=== PATIENT | female | born 1955 | race Caucasian/White ===

== ENCOUNTER 2020-01-17 10:54 | Emergency (ER) | payer BC ==
--- NOTE | 2020-01-17 11:49 | ED Physician Documentation ---
History of Present Illness - Stated complaint Stated Complaint: VERTIGO/NUMBNESS - Chief complaint Chief Complaint: General - History obtained from History obtained from: Patient, Family - History of Present Illness Timing: Prior to arrival - Additonal information Additional information: 64-year-old female presents to the emergency department for evaluation of r ecurrent vertigo. She reports that at 6 AM this morning when she was getting ready to shower she began to have a sudden spinning sensation. Since this morning the spinning sensation has not stopped and she now has some associated numbness and tingling in her right palm. She reports that for a number of years that she has had intermittent vertigo symptoms. However over the last 2 to 3 weeks it has become more persistent and acutely worse now for 48 hours. She was seen at physical therapy last week and they did attempt the Anny maneuver without relief of symptoms. With this episode of dizziness she reports that her vision is" wonky" but she does not have double vision or loss of visual richard. She has been persistently nauseated and is vomiting at the bedside. Deneis CP, SOB, abdominal pain, dysuia, urgency or frequency She does report a history of a benign meningioma that was resected in 2007 at the [facility]. pmh: no hx of htn, DM SOC: no tobacco; infrequent ETOH Review of Systems Constitutional: denies: Fever, Chills Eyes: reports: Decreased vision, Other (visual disturbance). denies: Loss of vision, Photophobia Ears: reports: Tinnitus/ringing. denies: Loss of hearing, Ear pain Nose: reports: Reviewed and negative Throat: reports: Reviewed and negative Cardiac: denies: Chest pain / pressure, Palpitations, Pedal edema, Calf pain Respiratory: denies: Dyspnea, Cough GI: reports: Nausea, Vomiting. denies: Abdominal Pain, Abdominal Swelling, Constipation, Diarrhea : denies: Frequency, Hesitancy Skin: denies: Rash, Lesions Musculoskeletal: denies: Neck pain, Back pain, Extremity pain Neurologic: reports: Other (vertigo). denies: Generalized weakness, Focal weakness, Numbness, Near syncope, Syncope, Seizure, Altered mental status, Unresponsive, Headache, LOC PD PAST MEDICAL HISTORY - Past Medical History Past Medical History: Yes Cardiovascular: None Respiratory: None Neuro: Other Endocrine/Autoimmune: None GI: None MEDICAL OFFICE TECHNICIAN: None : None HEENT: Chronic vision loss, Dental implants Psych: None Musculoskeletal: None Derm: None - Past Surgical History Past Surgical History: Yes Neuro: Craniotomy - Allergies Allergies/Adverse Reactions: Allergies Allergy/AdvReac Type Severity Reaction Status Date / Time No Known Drug Allergies Allergy Verified 01/17/20 11:11 - Social History Does the pt smoke?: No Smoking Status: Never smoker Does the pt drink ETOH?: No Does the pt have substance abuse?: No - Immunizations Immunizations are current?: Yes - POLST Patient has POLST: No PD ED PE EXPANDED - General General: Alert, In distress - HEENT HEENT: PERRL, EOMI, Ears normal, Pharynx normal, Other (Right eye with lateral deviation that corrects with fixed focus. EOMI otherwise intact. PERRLA) - Eyes Eyes: Normal accommodation, Right eye (Right eye with initial gaze deviation laterally that corrects with fixation. PERRL. Extraocular movements are intact. Normal accommodation.) - Neck Neck: Supple w/out meningeal sx, No tenderness. No: Stiff neck, Brudzinki's, Kernig's, JVD present, Adenopathy - Cardiac Cardiac: Regular Rate, Regular Rhythm, Radial strong equal, Cap refill < 2 sec - Respiratory Respiratory: Clear to ausultation morris. No: Distress, Labored - Abdomen Abdomen: Normal Bowel sounds. No: Tender to palpation - Derm Derm: Normal color. No: Rash - Neuro Neuro: Alert and Oriented X 3, Normal motor (motor strength 5/5 BUE/BLE), Normal Speech, Dyscongugate gaze, Nystagmus, Normal finger nose, Normal speech, Other (numbness and tingling right palm). No: CNII-XII intact - GCS Eye Opening: Spontaneous Motor: Obeys Commands Verbal: Oriented Total: 15 Results - Vitals Vitals: Vital Signs - 24 hr 01/17/20 01/17/20 01/17/20 10:58 13:24 13:41 Temperature 36.8 C Heart Rate 70 63 Heart Rate [ 75 Sitting] Heart Rate [ 76 Standing] Heart Rate [ 69 Supine] Respiratory 15 16 Rate Blood Pressure 140/92 H 141/86 H Blood Pressure 144/81 H [Sitting] Blood Pressure 135/83 H [Standing] Blood Pressure 140/73 H [Supine] O2 Saturation 99 97 Oxygen O2 Source Room air - EKG (time done) 1157 Rate: Rate (enter#) (62) Rhythm: NSR Atwood: Normal Intervals: Normal OH QRS: Normal Ischemia: Normal ST segments Compare to prior EKG: Old EKG unavailable Computer interpretation: Agree with computer - Labs Labs: Laboratory Tests 01/17/20 01/17/20 01/17/20 11:54 11:54 11:54 WBC 7.9 RBC 5.01 Hgb 14.9 Hct 44.4 MCV 88.6 MCH 29.7 MCHC 33.6 RDW 13.2 Plt Count 387 MPV 8.7 Neut # (Auto) 6.2 Lymph # (Auto) 1.3 L Ransom # (Auto) 0.3 Eos # (Auto) 0.0 Baso # (Auto) 0.1 Absolute Nucleated RBC 0.00 Nucleated RBC % 0.0 Sodium 137 Potassium 3.7 Chloride 103 Carbon Dioxide 24 Anion Gap 10.0 BUN 16 Creatinine 0.7 Estimated GFR (MDRD) 85 L Glucose 164 H Calcium 9.1 Total Bilirubin 0.7 AST 21 ALT 28 Alkaline Phosphatase 81 Troponin I High Sens < 2.3 L Total Protein 7.1 Albumin 4.2 Globulin 2.9 Albumin/Globulin Ratio 1.4 Lipase 32 Nasal Adenovirus (PCR) Nasal B. parapertussis DNA (PCR) Nasal Coronavir 229E PCR Nasal Coronavir HKU1 PCR Nasal Coronavir NL63 PCR Nasal Coronavir OC43 PCR Nasal Enterovir/Rhinovir PCR Nasal Influenza B PCR Nasal Influenza A PCR Nasal Parainfluen 1 PCR Nasal Parainfluen 2 PCR Nasal Parainfluen 3 PCR Nasal Parainfluen 4 PCR Nasal RSV (PCR) Nasal B.pertussis DNA PCR Nasal C.pneumoniae (PCR) Ignacio Human Metapneumo PCR Nasal M.pneumoniae (PCR) Nasal SARS-CoV-2 (PCR) 01/17/20 14:52 WBC RBC Hgb Hct MCV MCH MCHC RDW Plt Count MPV Neut # (Auto) Lymph # (Auto) Ransom # (Auto) Eos # (Auto) Baso # (Auto) Absolute Nucleated RBC Nucleated RBC % Sodium Potassium Chloride Carbon Dioxide Anion Gap BUN Creatinine Estimated GFR (MDRD) Glucose Calcium Total Bilirubin AST ALT Alkaline Phosphatase Troponin I High Sens Total Protein Albumin Globulin Albumin/Globulin Ratio Lipase Nasal Adenovirus (PCR) NOT DETECTED Nasal B. parapertussis DNA (PCR) NOT DETECTED Nasal Coronavir 229E PCR NOT DETECTED Nasal Coronavir HKU1 PCR NOT DETECTED Nasal Coronavir NL63 PCR NOT DETECTED Nasal Coronavir OC43 PCR NOT DETECTED Nasal Enterovir/Rhinovir PCR NOT DETECTED Nasal Influenza B PCR NOT DETECTED Nasal Influenza A PCR NOT DETECTED Nasal Parainfluen 1 PCR NOT DETECTED Nasal Parainfluen 2 PCR NOT DETECTED Nasal Parainfluen 3 PCR NOT DETECTED Nasal Parainfluen 4 PCR NOT DETECTED Nasal RSV (PCR) NOT DETECTED Nasal B.pertussis DNA PCR NOT DETECTED Nasal C.pneumoniae (PCR) NOT DETECTED Ignacio Human Metapneumo PCR NOT DETECTED Nasal M.pneumoniae (PCR) NOT DETECTED Nasal SARS-CoV-2 (PCR) NOT DETECTED PD MEDICAL DECISION MAKING - ED course ED course: 62-year-old female presents to the emergency department for evaluation of acute on chronic worsening vertigo. She does have a longstanding history of vertigo and has been seen recently by physical therapy in which they have attempted outpatient Nany maneuvers with no relief. This a.m. as she was getting ready to shower she had sudden onset of worsening vertigo with accompanied vomiting. She did initially see her primary care provider who advised she come to the ER for emergent evaluation. On initial presentation I did note that her right eye was deviated laterally but would correct. She also endorsed vision changes though not necessarily double vision. She denies any history of tobaccoism hypertension or diabetes. However the exam is concerning for posterior circulation concerns. We will proceed with CT angio of the head and neck. 1400: CT angio of the head and neck does show both bilateral vertebral and basilar artery lack of opacification which may indicate poor flow or occlusion. There is a left M1 4 mm associated aneurysm as well. 1430: I have spoken with Dr. Greenberg neurologist with [facility] hospitalist. He does recommend patient be emergently transferred for posterior circulation brainstem concerns/ischemia. 325 mg of aspirin ordered. 1445: I have spoken with [facility] Hospitalist Dr. Frandy Donovan accepting hospitalist at [facility]. Pt will be transported ALS. 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
--- NOTE | 2020-01-17 11:58 | XRAY Report ---
PROCEDURE: Chest 1 View X-Ray INDICATIONS: Chest Pain TECHNIQUE: One view of the chest was acquired. COMPARISON: None FINDINGS: Surgical changes and devices: Partially visualized lumbar spine fixation hardware.. Lungs and pleura: No pleural effusions or pneumothorax. Lungs are clear. Mediastinum: Mediastinal contours appear normal. Heart size is normal. Bones and chest wall: No suspicious bony lesions. Overlying soft tissues appear unremarkable. IMPRESSION: No acute cardiopulmonary disease process. Reviewed by: Samaria Barros MD, PhD on 01/17/2020 11:56 AM [facility] Approved by: Samaria Barros MD, PhD on 01/17/2020 11:56 AM [facility] Station ID: [id number]
[2020-01-17 12:04] LABS: BASOPHILS # (AUTO) 0.1 10^3/uL (0.0-0.1); BASOPHILS % (AUTO) 0.8 %; EOSINOPHILS % (AUTO) 0.3 %; HGB - HEMOGLOBIN 14.9 g/dL (12.0-16.0); LYMPHOCYTES # (AUTO) 1.3 10^3/uL (1.5-3.5); LYMPHOCYTES % (AUTO) 16.6 %; MEAN CORPUSCULAR HEMOGLOBIN 29.7 pg (27.0-31.0); MEAN CORPUSCULAR HGB CONC 33.6 g/dL (32.0-36.0); MEAN CORPUSCULAR VOLUME 88.6 fL (81.0-99.0); MEAN PLATELET VOLUME 8.7 fL (7.9-10.8); MONOCYTES # (AUTO) 0.3 10^3/uL (0.0-1.0); MONOCYTES % (AUTO) 3.3 %; NEUTROPHILS # (AUTO) 6.2 10^3/uL (1.5-6.6); NEUTROPHILS % (AUTO) 78.6 %; PLT - PLATELET COUNT 387 10^3/uL (130-450); RED BLOOD COUNT 5.01 10^6/uL (4.20-5.40); RED CELL DISTRIBUTION WIDTH 13.2 % (12.0-15.0); WHITE BLOOD COUNT 7.9 x10^3/uL (4.8-10.8)
[2020-01-17] MEDS ORDERED: IOVERSOL 320 100 ML VIAL IVP ONE (12:10)
[2020-01-17] MEDS: MECLIZINE 12.5 MG TABLET PO STA (12:13)
[2020-01-17] MEDS: SODIUM CHLORIDE 0.9% 1,000 ML IV STA (12:16)
[2020-01-17] MEDS: ONDANSETRON 4 MG/2 ML VIAL IVP STA (12:17)
[2020-01-17 12:19] LABS: ALBUMIN 4.2 g/dL (3.2-5.5); ALBUMIN/GLOBULIN RATIO 1.4 (1.0-2.2); BILIRUBIN,TOTAL 0.7 mg/dL (0.2-1.0); CALCIUM 9.1 mg/dL (8.5-10.3); CREATININE 0.7 mg/dL (0.4-1.0); TOTAL PROTEIN 7.1 g/dL (6.7-8.2)
[2020-01-17] MEDS: IOVERSOL 320 100 ML VIAL IVP ONE (13:13)
--- NOTE | 2020-01-17 13:34 | CT Report ---
PROCEDURE: ANGIO HEAD W/WO INDICATIONS: vertigo CONTRAST: IV CONTRAST: Optiray 320 ml: 80 PO CONTRAST: *NO PO CONTRAST TECHNIQUE: Precontrast 4.5 mm thick angled axial sections acquired from the foramen magnum to the vertex. Afte r the administration of intravenous contrast, 1 mm thick sections acquired through the [place] of [place] is. Postcontrast 4.5 mm thick sections then re-acquired from the foramen magnum to the vertex. 3-di mensional zloogkm-ghuxojrvn-qnozebygos (MIP) and/or volume rendering reformats were acquired of the c entral intracranial vasculature. For radiation dose reduction, the following was used: automated ex posure control, adjustment of mA and/or kV according to patient size. COMPARISON: CTA neck 01/17/2020. FINDINGS: Image quality: Excellent. Anterior circulation: The anterior circulation, including the anterior and right middle cerebral art eries, as well as bilateral internal carotid arteries demonstrates no areas of hemodynamically signif icant stenosis, vascular occlusion or aneurysmal dilation. There is a 4 mm aneurysm within the left M 1 segment. Posterior circulation: There is bilateral persistence of circulation, consistent with congenti al variation. Distal portions of the vertebral arteries bilaterally are diminutive with areas of abse nce of contrast opacification. In addition, the basilar artery is diminutive with nonopacification of the proximal portion. No priors are available for comparison. No aneurysms are seen. CSF spaces: Ventricles are normal in size and shape. Basal cisterns are patent. No extra-axial flu id collections. Brain: No midline shift. No intracranial bleeds or masses. Chowdhury-white matter interface appears int act. Low attenuation focus is present in the right frontal lobe. Smaller focus is noted posteriorly in the right frontal lobe. Skull and face: Calvarium demonstrates right frontal post surgical changes. The facial bones appear intact, without suspicious lesions. Sinuses: Visualized sinuses and mastoids are clear. IMPRESSION: 1. Low-attenuation foci within the frontal lobes as above. Given postsurgical calvarial changes, this may be secondary to previous hemorrhage or trauma. 2. Diminutive appearance of distal vertebral arteries bilaterally, including portions of nonopacifica tion. In addition, the proximal basilar artery also demonstrates lack of opacification with mid and d istal portions appearing diminutive. It is noted that there is persistence of bilateral circula tion to the posterior vasculature. MRI is recommended for further evaluation of any associated ischem ia. 3. Left M1 segment aneurysm as above. No visualized hemorrhage. Reviewed by: Jhoana Whiteside MD on 01/17/2020 12:32 PM [facility] Approved by: Jhoana Whiteside MD on 01/17/2020 12:32 PM [facility] Station ID: [id number]
--- NOTE | 2020-01-17 13:39 | CT Report ---
PROCEDURE: ANGIO NECK W INDICATIONS: L sided facial droop, L neck pain CONTRAST: IV CONTRAST: Optiray 320 ml: 100 PO CONTRAST: *NO PO CONTRAST TECHNIQUE: After the administration of intravenous contrast, 1.5 mm axial sections acquired from the aortic arch to the [place] of [place]. Coronal 3-D maximum intensity projection (MIP) and/or volume rendering ref ormats were then performed. For radiation dose reduction, the following was used: automated exposur e control, adjustment of mA and/or kV according to patient size. COMPARISON: CTA head 01/17/2020 FINDINGS: Image quality: Excellent. The origins of the left and right common, internal and external carotid arteries demonstrate no areas of hemodynamically significant stenosis, vascular occlusion or aneurysmal dilation. Origin of the le ft vertebral artery and right vertebral artery demonstrate no areas of hemodynamically significant st enosis, vascular occlusion or aneurysmal dilation. The midportion of the left vertebral artery becomes markedly diminutive with poor visualization of co ntrast opacification. In addition, adjacent segment more cranially demonstrates loss of central contr ast enhancement. As noted on CTA head exam, there is a 4 mm left M1 segment aneurysm. In addition, di stal vertebral arteries become diminutive with areas of absence of contrast opacification. In additio n, proximal basilar artery also appears to be nonopacified with diminutive appearance of the mid and distal portions. There is persistent circulation bilaterally into the posterior circulation. Aortic arch demonstrates conventional anatomy. Limited, visualized portions of the subclavian vascula ture are unremarkable. . IMPRESSION: 1. 4 mm left M1 segment aneurysm. No evidence of hemorrhage. 2. Markedly diminutive distal vertebral arteries bilaterally with areas of no contrast opacification suggestive of short segment occlusions. In addition, optional basilar artery demonstrates loss of con trast enhancement with diminutive appearance of the mid and distal segments. There is persistence of circulation bilaterally. MRI is recommended for evalua tion of potential presence of acute ischemia. 3. Short segment areas of the left vertebral artery within the midportion which demonstrate loss of c ontrast enhancement suggestive of occlusion. In addition, adjacent segments of the vertebral artery d emonstrate loss of contrast enhancement within the central portion which can be secondary to thrombus or less likely contained dissection. The estimate of stenosis included in the report of the imaging study was calculated using the NASCET method Reviewed by: Jhoana Whiteside MD on 01/17/2020 12:38 PM [facility] Approved by: Jhoana Whiteside MD on 01/17/2020 12:38 PM [facility] Station ID: [id number]
[2020-01-17] MEDS: PROCHLORPERAZINE 10 MG/2 ML VIAL IVP STA (14:24)
[2020-01-17] MEDS: ASPIRIN CHEW 81 MG TABLET PO STA (14:38)
[2020-01-17 15:48] LABS: C. PNEUMONIAE- RESP PCR PANEL NOT DETECTED
[2020-01-17 18:36] VITALS: BP 124/77
== END 2020-01-17 19:59 | disposition short-term general hospital (02) ==
LOC: ED 10:54
DX: I65.03 Occlusion and stenosis of bilateral vertebral arteries (principal); Z20.828 Contact with and (suspected) exposure to other viral communicable diseases
CPT/HCPCS: 0202U; 36415; 70496; 70498; 71045; 80053; 83690; 84484; 85025; 93005; 96374; 96375; 99285; A9270; Q9967

== ENCOUNTER 2020-01-17 19:20 | Outpatient (CLI) | payer BC | END 2020-01-17 19:21 | disposition short-term general hospital (02) | LOC: EMS 19:20 | PROVIDERS: ATTEND Surgery | DX: R42 Dizziness and giddiness (principal); R20.0 Anesthesia of skin; R11.0 Nausea | CPT/HCPCS: A0425; A0426 ==

== ENCOUNTER 2020-03-12 08:00 | Outpatient (CLI) | payer BC ==
[2020-03-12 18:41] LABS: BASOPHILS # (AUTO) 0.1 10^3/uL (0.0-0.1); BASOPHILS % (AUTO) 1.3 %; EOSINOPHILS # (AUTO) 0.2 10^3/uL (0.0-0.7); EOSINOPHILS % (AUTO) 3.8 %; HGB - HEMOGLOBIN 14.5 g/dL (12.0-16.0); LYMPHOCYTES # (AUTO) 1.7 10^3/uL (1.5-3.5); LYMPHOCYTES % (AUTO) 29.9 %; MEAN CORPUSCULAR HEMOGLOBIN 28.9 pg (27.0-31.0); MEAN CORPUSCULAR HGB CONC 31.1 g/dL (32.0-36.0); MEAN CORPUSCULAR VOLUME 92.8 fL (81.0-99.0); MEAN PLATELET VOLUME 9.7 fL (7.9-10.8); MONOCYTES # (AUTO) 0.4 10^3/uL (0.0-1.0); MONOCYTES % (AUTO) 7.5 %; NEUTROPHILS # (AUTO) 3.2 10^3/uL (1.5-6.6); NEUTROPHILS % (AUTO) 57.1 %; PLT - PLATELET COUNT 359 10^3/uL (130-450); RED BLOOD COUNT 5.02 10^6/uL (4.20-5.40); RED CELL DISTRIBUTION WIDTH 13.2 % (12.0-15.0); WHITE BLOOD COUNT 5.6 x10^3/uL (4.8-10.8)
[2020-03-12 18:55] LABS: ALBUMIN 4.4 g/dL (3.2-5.5); ALBUMIN/GLOBULIN RATIO 1.6 (1.0-2.2); ALKALINE PHOSPHATASE 80 IU/L (42-121); ALT ALANINE AMINOTRANSFERASE 50 IU/L (10-60); AST ASPARTATE AMINOTRANSFERASE 29 IU/L (10-42); BILIRUBIN,TOTAL 0.5 mg/dL (0.2-1.0); BUN - BLOOD UREA NITROGEN 25 mg/dL (6-20); CALCIUM 9.2 mg/dL (8.5-10.3); CARBON DIOXIDE - CO2 26 mmol/L (21-32); CHLORIDE 105 mmol/L (101-111); CHOL/HDL RATIO 2.7 (<4.4); CHOLESTEROL 150 mg/dL; CREATININE 0.8 mg/dL (0.4-1.0); GLUCOSE 93 mg/dL (70-100); HDL CHOLESTEROL 55 mg/dL; LDL CHOLESTEROL,CALCULATED 79 mg/dL; LDL/HDL RATIO 1.4 (<4.4); SODIUM 138 mmol/L (135-145); TOTAL PROTEIN 7.1 g/dL (6.7-8.2); VLDL CHOLESTEROL 16 mg/dL
[2020-03-12 20:06] LABS: HEMOGLOBIN A1c% 5.6 % (4.27-6.07)
== END 2020-03-12 23:59 | disposition home or self-care (01) ==
LOC: LAB.WCP 08:00
PROVIDERS: ATTEND Family Medicine
DX: R73.03 Prediabetes (principal); E78.5 Hyperlipidemia, unspecified
CPT/HCPCS: 36415; 80053; 80061; 83036; 83721; 84443; 85025

== ENCOUNTER 2020-03-15 09:32 | Outpatient (CLI) | payer BC ==
--- NOTE | 2020-03-26 11:19 | Mammography Report ---
BILATERAL DIGITAL SCREENING MAMMOGRAM 3D/2D: 03/15/2020 CLINICAL: Family history of breast cancer. Routine screening. Additional films were requested but not obtained. The tissue of both breasts is heterogeneously dens e. This may lower the sensitivity of mammography. There is a possible 1.5 cm mass in the right breast at 5 o'clock in the retroareolar region. No other significant masses, calcifications, or other findings are seen in either breast. IMPRESSION: INCOMPLETE: NEED PRIOR STUDIES FOR COMPARISON The possible 1.5 cm mass in the right breast is indeterminate. Additional views with possible ultras ound are recommended. This exam was interpreted at Station ID: [id number]. NOTE: For mammograms, a report in lay terms will be sent to the patient. Approximately 15% of breast malignancies will not be visualized mammographically. In the management of a palpable breast mass, a negative mammogram must not discourage biopsy of a clinically suspicious lesion. Electronically Signed By: Maximiliano tanner/sebas:03/26/2020 10:38:05 ACR BI-RADS Category 0 Need prior studies for comparison 3340F PARENCHYMAL PATTERN: (D) - The breast(s) demonstrate(s) heterogeneously dense fibroglandular parveroniquey ma. BI-RADS CATEGORY: (0) - 0 Mammo and [place] [id number] Immediate follow-up LATERALITY: (R)
== END 2020-03-15 09:33 | disposition home or self-care (01) ==
LOC: DI.N 09:32
DX: Z12.31 Encounter for screening mammogram for malignant neoplasm of breast (principal); N63.14 Unspecified lump in the right breast, lower inner quadrant; Z80.3 Family history of malignant neoplasm of breast

== ENCOUNTER 2020-03-20 10:39 | Outpatient (CLI) | payer BC ==
[2020-01-17 16:24] LABS: CHOL/HDL RATIO 4.8 (<4.4); CHOLESTEROL 276 mg/dL; HDL CHOLESTEROL 58 mg/dL; LDL CHOLESTEROL,CALCULATED 198 mg/dL; LDL/HDL RATIO 3.4 (<4.4); VLDL CHOLESTEROL 20 mg/dL
--- NOTE | 2020-03-20 11:21 | DEXA Report ---
PROCEDURE: Dexa Spine and/or Hip INDICATIONS: POSTMENOPAUSAL TECHNIQUE: Dual energy x-ray absorptiometry (DXA) was performed on a [employer] System. Regions measur ed are the AP Spine, femoral neck, and if needed forearm. COMPARISON: None. FINDINGS: Lumbar Spine: Bone Mineral Density 1.395 g/cm/cm,T score 2.2, prior corpectomy and fusion of lumbar spine at L2- 3 level is seen. Left Hip: Bone Mineral Density 0.822 g/cm/cm,T score -1.5, Left Femoral Neck: Bone Mineral Density 0.770 g/cm/cm, T score -1.9, (T score greater or equal to -1.0: NORMAL) (T score from -1.1 to -2.4: OSTEOPENIA) (T score less than or equal to -2.5 to: OSTEOPOROSIS) Impression: Osteopenia. Patients with diagnosis of osteoporosis or osteopenia should have regular bone mineral density assess ment. For those eligible for Medicare, routine testing is allowed once every 2 years. Testing frequ ency can be increased for patients who have rapidly progressing disease or for those who are receivin g medical therapy to restore bone mass. Reviewed by: Mitch Ratliff MD on 03/20/2020 11:19 AM PST Approved by: Mitch Ratliff MD on 03/20/2020 11:19 AM PST Station ID: [id number]
== END 2020-03-20 10:40 | disposition home or self-care (01) ==
LOC: DI 10:39
PROVIDERS: ATTEND Family Medicine
DX: Z00.00 Encounter for general adult medical examination without abnormal findings (principal); Z78.0 Asymptomatic menopausal state; M85.89 Other specified disorders of bone density and structure, multiple sites; E78.5 Hyperlipidemia, unspecified
CPT/HCPCS: 36415; 80053; 80061; 83721; 84443; 85025

== ENCOUNTER 2020-03-20 11:00 | Outpatient (CLI) | payer BC ==
--- NOTE | 2020-03-20 11:21 | DEXA Report ---
REVISED: THIS REPORT WAS ORIGINALLY SIGNED ON 03/20/2020 @ 11:19 AM. THE REPORT MOVED TO THE CORRECT ACCOUNT ON 04/09/2020. PROCEDURE: Dexa Spine and/or Hip INDICATIONS: POSTMENOPAUSAL TECHNIQUE: Dual energy x-ray absorptiometry (DXA) was performed on a [employer] System. Regions measured are the AP Spine, femoral neck, and if needed forearm. COMPARISON: None. FINDINGS: Lumbar Spine: Bone Mineral Density 1.395 g/cm/cm,T score 2.2, prior corpectomy and fusion of lumbar spine at L2-3 level is seen. Left Hip: Bone Mineral Density 0.822 g/cm/cm,T score -1.5, Left Femoral Neck: Bone Mineral Density 0.770 g/cm/cm, T score -1.9, (T score greater or equal to -1.0: NORMAL) (T score from -1.1 to -2.4: OSTEOPENIA) (T score less than or equal to -2.5 to: OSTEOPOROSIS) Impression: Osteopenia. Patients with diagnosis of osteoporosis or osteopenia should have regular bone mineral density assessment. For those eligible for Medicare, routine testing is allowed once every 2 years. Testing frequency can be increased for patients who have rapidly progressing disease or for those who are receiving medical therapy to restore bone mass. Reviewed by: Mitch Ratliff MD on 03/20/2020 11:19 AM PST Approved by: Mitch Ratliff MD on 03/20/2020 11:19 AM PST Station ID: [id number]
== END 2020-03-20 15:00 ==
LOC: DI 11:00
PROVIDERS: ATTEND Family Medicine
DX: M85.89 Other specified disorders of bone density and structure, multiple sites (principal); Z78.0 Asymptomatic menopausal state

== ENCOUNTER 2020-04-17 10:31 | Outpatient (CLI) | payer BC ==
--- NOTE | 2020-04-17 13:38 | Mammography Report ---
UNILATERAL RIGHT DIGITAL DIAGNOSTIC MAMMOGRAM 3D/2D: 04/17/2020 CLINICAL: Additional evaluation requested from prior study. Patient returns for additional imaging ov er a suspected mass in the right breast. Comparison is made to exams dated: 03/15/2020 mammogram - [facility], 08/31/2018 mamm ogram, 07/29/2017 mammogram, 07/15/2016 mammogram, and 01/24/2015 mammogram - [facility]. The tissue of right breast is heterogeneously dense. This may lower the sensitivity of mammography. There is a new 2 cm x 1.2 cm oval mass in the right breast at 6 o'clock anterior depth 2 cm from the nipple. This is seen in additional views. No other significant masses or calcifications are seen in the breast. IMPRESSION: INCOMPLETE: NEEDS ADDITIONAL IMAGING EVALUATION The new 2 cm x 1.2 cm oval mass in the right breast is indeterminate. An ultrasound is recommended. US will be performed and dictated separately. Review of prior images demonstatres this to be stable since 2014. This exam was interpreted at Station ID: [id number]. NOTE: For mammograms, a report in lay terms will be sent to the patient. Approximately 15% of breast malignancies will not be visualized mammographically. In the management of a palpable breast mass, a negative mammogram must not discourage biopsy of a clinically suspicious lesion. Electronically Signed By: Victor Manuel Barkley acr/:04/17/2020 11:51:29 ACR BI-RADS Category 0: Incomplete 3340F PARENCHYMAL PATTERN: (D) - The breast(s) demonstrate(s) heterogeneously dense fibroglandular paraakash aponte. BI-RADS CATEGORY: (0) - 0 Ultrasound [id number] Immediate follow-up LATERALITY: (B)
--- NOTE | 2020-04-17 13:38 | Ultrasound Report ---
LIMITED ULTRASOUND OF RIGHT BREAST: 04/17/2020 CLINICAL: Patient returns for additional imaging over a suspected mass in the right breast. Comparison is made to exams dated: 04/17/2020 mammogram, 03/15/2020 mammogram - [facility], 08/31/2018 mammogram, 07/29/2017 mammogram, 07/15/2016 mammogram, and 01/24/2015 mammogram - [facility]. Color flow and real-time ultrasound of the right breast 4 o'clock region were performed. Chowdhury scale images of the real-time examination were reviewed. There is a stable benign 1.3 cm x 0.5 cm x 1.7 cm mass with a circumscribed margin in the right breas t at 4 o'clock posterior depth. This mass is hypoechoic. This correlates with mammography findings. Color flow imaging demonstrates that there is no increase in vascularity. IMPRESSION: BENIGN There is no sonographic evidence of malignancy. 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 Return to annual mammogram screening schedule is recommended. Future imaging is recommended as follo ws: 03/16/2021 screening mammogram. This exam was interpreted at Station ID: [id number]. Electronically Signed By: Victor Manuel Barkley acr/:04/17/2020 11:50:18 Ultrasound BI-RADS: 2 Benign BI-RADS CATEGORY: (2) - 2 Mammogram [id number] return to screening LATERALITY: (B)
== END 2020-04-17 10:32 | disposition home or self-care (01) ==
LOC: DI 10:31
PROVIDERS: ATTEND Family Medicine
DX: R92.8 Other abnormal and inconclusive findings on diagnostic imaging of breast (principal); N63.15 Unspecified lump in the right breast, overlapping quadrants

== ENCOUNTER 2021-01-01 11:59 | Outpatient (CLI) | payer BC ==
[2021-01-01] MEDS ORDERED: GADOBUTROL 7.5 MMOL/7.5 ML VIAL ONE (12:57)
[2021-01-01 13:02] LABS: CREATININE 0.7 mg/dL (0.4-1.0)
[2021-01-01] MEDS ORDERED: GADOBUTROL 7.5 MMOL/7.5 ML VIAL IVP ONE (16:21)
--- NOTE | 2021-01-01 17:12 | MRI Report ---
PROCEDURE: Brain W/WO INDICATIONS: LEFT VERTEBRAL ARTERY DISSECTION CONTRAST: IV CONTRAST: Gadavist ml: 6.9 TECHNIQUE: Noncontrast axial T1 spin echo, axial T2 fast spin echo, sagittal and axial FLAIR, coronal T2 fast sp in echo, axial gradient echo, axial diffusion and ADC through the brain. After the administration of contrast, axial and coronal T1 spin echo with fat saturation through the brain. COMPARISON: MRA head and neck 01/01/2021. 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 FINDINGS: Image quality: Excellent. CSF spaces: Basal cisterns are patent. No extra-axial fluid collections. Ventricles are normal in size and shape. Brain: No midline shift. No intracranial bleeds or masses. No abnormal intracranial enhancement. There is cerebral volume loss for age. There is periventricular white matter chronic small vessel is chemic change. The brainstem appears normal. Diffusion-weighted images demonstrate no acute ischemi c insults. No chronic ischemic insults. As identified on previous CTA exam, there is a diminutive ap pearance of the distal vertebral arteries as well as loss of opacification within the proximal basila r artery. Skull and face: Calvarial marrow is normal in signal. Orbits appear normal. Sinuses: Sinuses and mastoids appear clear. IMPRESSION: 1. No acute intracranial process. Postsurgical frontal lobe changes and craniotomy are noted. 2. Mild atrophy and chronic microvascular ischemic changes. 3. Diminished appearance of the vertebral arteries bilaterally as well as the proximal basilar arter y. Spleen see MRA report for further details. Reviewed by: Jhoana Whiteside MD on 01/01/2021 5:11 PM PST Approved by: Jhoana Whiteside MD on 01/01/2021 5:11 PM PST Station ID: [id number]
--- NOTE | 2021-01-01 17:15 | MRI Report ---
PROCEDURE: Angio Brain W/O (MRA) INDICATIONS: LEFT VERTEBRAL ARTERY DISSECTION TECHNIQUE: Noncontrast axial 3-D [id number] MR angiogram, with 3-dimensional maximum intensity projection (M IP) reformats of the internal carotid arteries and posterior circulation then performed. COMPARISON: MRI brain, MRA neck 01/01/2021, CTA head and neck 01/17/2020. FINDINGS: Image quality: Excellent. Anterior circulation: Intracranial internal carotid arteries demonstrate normal size and intralumina l flow signal. The flow within the paired anterior cerebral arteries is normal and symmetric. The f low within the middle cerebral arteries is normal and symmetric. The anterior communicating artery i s seen. No stenoses, occlusions, or aneurysms. Posterior circulation: There is persistence of a right-sided circulation. As identified on prio r CT exam in 2019, there is a diminutive appearance of the vertebral arteries bilaterally. However, t here appears to be increased distal reconstitution of flow within the left vertebral artery compared to prior CTA. There remains a markedly diminutive appearance of the basilar artery with nonopacificat ion of the proximal portion. However, significant artifact is present IMPRESSION: Persistent appearance of diminutive flow within the distal vertebral arteries, although appearing que stionably improved on the left compared to previous exam. Proximal basilar artery remains nonopacifie d suggestive of occlusion. Mid and distal portions are markedly diminutive, unchanged. There is signi ficant artifact present with this exam. Reevaluation of the vertebral basilar arteries is recommended with CTA. Reviewed by: Jhoana Whiteside MD on 01/01/2021 5:13 PM PST Approved by: Jhoana Whiteside MD on 01/01/2021 5:13 PM PST Station ID: [id number]
--- NOTE | 2021-01-01 17:16 | MRI Report ---
PROCEDURE: Angio Neck W/WO (MRA) INDICATIONS: LEFT VERTEBRAL ARTERY DISSECTION CONTRAST: IV CONTRAST: Gadavist ml: 6.9 TECHNIQUE: Axial and sagittal balanced GE through the neck. Coronal dynamic MRA after the administration of con trast in the arterial and venous phases, with rotating 3-dimensional maximum intensity projection (AL P) reformats constructed from subtraction images. COMPARISON: MRA head, MRI brain 01/01/2021, CTA head and neck 01/17/2020. FINDINGS: Image quality: Excellent. The origins of the left and right common, internal and external carotid arteries demonstrate no areas of hemodynamically significant stenosis, vascular occlusion or aneurysmal dilation. Origin of the le ft vertebral artery and right vertebral artery demonstrate no areas of hemodynamically significant st enosis, vascular occlusion or aneurysmal dilation. As identified on prior exams, there is diminutive appearance of the distal vertebral arteries extending into the probable occluded proximal basilar art jl and markedly diminutive appearance of the mid and distal segments. Aortic arch demonstrates conve ntional anatomy. Limited, visualized portions of the subclavian vasculature are unremarkable. IMPRESSION: Apparent stable appearance of diminished distal vertebral arteries as well as basilar artery with pos sible proximal basilar artery occlusion. While overall appearance appears relatively unchanged, signi ficant artifact is present within this exam, limiting areas of evaluation. CTA neck is recommended fo r further evaluation. Reviewed by: Jhoana Whiteside MD on 01/01/2021 5:15 PM PST Approved by: Jhoana Whiteside MD on 01/01/2021 5:15 PM PST Station ID: [id number]
== END 2021-01-01 12:00 | disposition home or self-care (01) ==
LOC: DI 11:59
PROVIDERS: ATTEND Family Medicine
DX: I67.1 Cerebral aneurysm, nonruptured (principal); R42 Dizziness and giddiness; Z86.73 Personal history of transient ischemic attack (TIA), and cerebral infarction without residual deficits; I67.82 Cerebral ischemia; G31.9 Degenerative disease of nervous system, unspecified; I77.74 Dissection of vertebral artery; R90.89 Other abnormal findings on diagnostic imaging of central nervous system
CPT/HCPCS: 36415; 70544; 70549; 70553; 82565; A9585

== ENCOUNTER 2021-01-01 12:17 | Outpatient (CLI) | payer BC | END 2021-01-01 12:18 | disposition home or self-care (01) | LOC: LAB 12:17 | PROVIDERS: ATTEND Family Medicine | DX: Z86.73 Personal history of transient ischemic attack (TIA), and cerebral infarction without residual deficits (principal) ==

== ENCOUNTER 2021-02-13 08:00 | Outpatient (CLI) | payer BC | END 2021-02-13 23:59 | LOC: LAB.N 08:00 | PROVIDERS: ATTEND Family Medicine | DX: R39.9 Unspecified symptoms and signs involving the genitourinary system (principal) | CPT/HCPCS: 87086 ==

== ENCOUNTER 2021-04-19 10:30 | Outpatient (CLI) | payer BC ==
[2021-04-19 10:50] LABS: CALCIUM 9.1 mg/dL (8.5-10.3); CREATININE 0.7 mg/dL (0.4-1.0); POTASSIUM 4.3 mmol/L (3.5-5.0)
== END 2021-04-19 10:31 | disposition home or self-care (01) ==
LOC: LAB 10:30
PROVIDERS: ATTEND Family Medicine
DX: I10 Essential (primary) hypertension (principal)
CPT/HCPCS: 36415; 80048

== ENCOUNTER 2022-09-30 13:52 | Outpatient (CLI) | payer MEDICARE, BC ==
--- NOTE | 2022-09-30 18:04 | XRAY Report ---
PROCEDURE: Chest 2 View X-Ray INDICATIONS: ACUTE COUGH TECHNIQUE: 2 views of the chest were acquired. COMPARISON: 01/17/2020. FINDINGS: Surgical changes and devices: None. Lungs and pleura: Collapse of the right middle lobe. Mediastinum: Mediastinal contours appear normal. Heart size is normal. Bones and chest wall: No suspicious bony lesions. Overlying soft tissues appear unremarkable. IMPRESSION: Right middle lobe collapse. Other lung richard are clear. Progress films are recommended until clear. Will require CT with contrast if right middle lobe does n ot reexpand. Reviewed by: Rodney Story MD on 09/30/2022 6:03 PM PDT Approved by: Rodney Sotry MD on 09/30/2022 6:03 PM PDT Station ID: [id number]
== END 2022-09-30 23:59 | disposition home or self-care (01) ==
LOC: DI.S 13:52
PROVIDERS: ATTEND Physician Assistant
DX: R05.1 Acute cough (principal); J98.19 Other pulmonary collapse

== ENCOUNTER 2022-12-30 13:33 | Outpatient (CLI) | payer MEDICARE, BC ==
--- NOTE | 2022-12-31 08:50 | XRAY Report ---
PROCEDURE: Chest 2 View X-Ray INDICATIONS: LUNG COLLAPSE TECHNIQUE: 2 views of the chest were acquired. COMPARISON: None. FINDINGS: Surgical changes and devices: Lower lumbar surgical hardware is partially seen. Lungs and pleura: Diffusely coarse interstitial markings. No consolidation, effusion, or pneumothora x. Mediastinum: Mediastinal contours appear normal. Heart size is normal. Bones and chest wall: Remote left fourth and fifth rib fractures. Osseous structures are otherwise n ormal. No vertebral body fractures visible. Soft tissues are unremarkable. IMPRESSION: No opacities to suggest lobar atelectasis. Diffuse interstitial thickening may indicate acute pneumonitis or underlying chronic lung disease. Reviewed by: Shanita Awad MD on 12/31/2022 8:48 AM PST Approved by: Shanita Awad MD on 12/31/2022 8:48 AM PST Station ID: [id number]
== END 2022-12-30 13:34 | disposition home or self-care (01) ==
LOC: DI.S 13:33
PROVIDERS: ATTEND Emergency Medicine
DX: R91.8 Other nonspecific abnormal finding of lung field (principal)

== ENCOUNTER 2023-01-19 11:20 | Outpatient (CLI) | payer MEDICARE, BC ==
[2023-01-19 11:59] LABS: CREATININE 0.7 mg/dL (0.6-1.3)
[2023-01-19] MEDS ORDERED: iohexoL-300 100 ML VIAL IVP ONE (13:52)
--- NOTE | 2023-01-19 15:17 | CT Report ---
PROCEDURE: CHEST W INDICATIONS: LUNG COLLAPSE CONTRAST: Omni 300 100ml TECHNIQUE: After the administration of intravenous contrast, 1 mm axial images were acquired from the pulmonary apices through the posterior costophrenic angles. Axial 5 mm soft tissue kernel reconstructions were performed as well as 8 mm axial MIP and coronal and sagittal 5 mm reformations. For radiation dose reduction, the following was used: automated exposure control, adjustment of mA and/or kV according to patient size. COMPARISON: None. FINDINGS: Image quality: Excellent. Lungs and pleura: No consolidation. No pleural effusions. No pneumothorax. No suspicious pulmonary n odules which require follow up. Mediastinum: Heart size is normal. No pericardial effusion. No large vessel abnormality. No mediastin al adenopathy by size criteria. Small hiatal hernia. Chest wall and lower neck: Thyroid is unremarkable. No axillary or supraclavicular adenopathy by size . Bones: No aggressive osseous abnormality. Upper Abdomen: Hyperattenuating right renal mass with a moderate size solid component and macroscopic fat, measuring 4.9 x 3.4 cm on the superior pole of the right kidney. No retroperitoneal adenopathy. Left lumbar hernia. IMPRESSION: Resolved right middle lobe collapse. No obstructing mass identified at the hilum. Exophytic mass on the superior pole of the right kidney containing macroscopic fat. 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 6 month follow-up with single phase CT of the abdomen is recommended to ensure stability, and surgical consultation should be considered given size. Reviewed by: Teddy Manzo on 01/19/2023 3:15 PM PST Approved by: Teddy Manzo on 01/19/2023 3:15 PM PST Station ID: [id number]
== END 2023-01-19 11:21 | disposition home or self-care (01) ==
LOC: LAB 11:20
PROVIDERS: ATTEND Emergency Medicine
DX: Z09 Encounter for follow-up examination after completed treatment for conditions other than malignant neoplasm (principal); Z87.09 Personal history of other diseases of the respiratory system; N28.89 Other specified disorders of kidney and ureter
CPT/HCPCS: 36415; 71260; 82565; Q9967

== ENCOUNTER 2023-01-30 13:03 | Outpatient (CLI) | payer MEDICARE, BC ==
[2023-01-30 13:14] LABS: BASOPHILS # (AUTO) 0.1 10^3/uL (0.0-0.1); EOSINOPHILS # (AUTO) 0.2 10^3/uL (0.0-0.7); EOSINOPHILS % (AUTO) 3.2 %; HCT - HEMATOCRIT 43.9 % (37.0-47.0); HGB - HEMOGLOBIN 14.4 g/dL (12.0-16.0); MEAN CORPUSCULAR HGB CONC 32.8 g/dL (32.0-36.0); MEAN CORPUSCULAR VOLUME 88.5 fL (81.0-99.0); MEAN PLATELET VOLUME 8.9 fL (7.9-10.8); MONOCYTES # (AUTO) 0.5 10^3/uL (0.0-1.0); MONOCYTES % (AUTO) 7.8 %; NEUTROPHILS # (AUTO) 4.1 10^3/uL (1.5-6.6); NEUTROPHILS % (AUTO) 58.9 %; PLT - PLATELET COUNT 346 10^3/uL (130-450); RED BLOOD COUNT 4.96 10^6/uL (4.20-5.40); RED CELL DISTRIBUTION WIDTH 13.1 % (12.0-15.0); WHITE BLOOD COUNT 6.9 x10^3/uL (4.8-10.8)
[2023-01-30 13:44] LABS: ALBUMIN 4.5 g/dL (3.2-5.5); ALBUMIN/GLOBULIN RATIO 1.7 (1.0-2.2); BILIRUBIN,TOTAL 0.6 mg/dL (0.2-1.0); CALCIUM 9.9 mg/dL (8.5-10.3); CREATININE 0.8 mg/dL (0.6-1.3); POTASSIUM 4.5 mmol/L (3.5-4.5); TOTAL PROTEIN 7.1 g/dL (6.4-8.9)
== END 2023-01-30 13:04 | disposition home or self-care (01) ==
LOC: LAB 13:03
PROVIDERS: ATTEND Urology
DX: N28.89 Other specified disorders of kidney and ureter (principal); J98.19 Other pulmonary collapse
CPT/HCPCS: 36415; 80053; 85025

== ENCOUNTER 2023-02-02 08:19 | Outpatient (CLI) | payer MEDICARE, BC ==
[2023-02-02] MEDS ORDERED: DIATR MEGLU/DIATRIZOATE SODIUM 120 ML BOTTLE ONE (08:24)
[2023-02-02] MEDS ORDERED: iohexoL-300 100 ML VIAL IVP ONE (11:24)
[2023-02-02] MEDS ORDERED: DIATRIZOATE MEGLU/DIATRIZO SOD 30 ML BOTTLE PO ONE (11:25)
--- NOTE | 2023-02-02 12:29 | CT Report ---
PROCEDURE: ABDOMEN/PELVIS W INDICATIONS: RENAL MASS CONTRAST: 100ml omni 300 TECHNIQUE: After the administration of intravenous contrast, 5 mm thick sections acquired from the diaphragms to the symphysis. 5 mm thick coronal and sagittal reformats were acquired. For radiation dose reducti on, the following was used: automated exposure control, adjustment of mA and/or kV according to meño ent size. COMPARISON: CT chest dated 01/19/2023 FINDINGS: Image quality: Excellent. Lung bases and heart: Small hiatal hernia. Normal heart size. Lung bases are clear. Liver: No solid mass. Mild diffuse hepatic steatosis. Gallbladder and biliary tree: No radiopaque stones or wall thickening. No biliary dilation. Spleen: No splenomegaly. Pancreas: No pancreatic ductal dilation. Adrenals: No adrenal nodule. Kidneys and ureters: There is a fat-containing partially exophytic mass off the middle pole of the le ft kidney which measures 6.0 x 3.4 x 5.0 cm. It contains a solid component which measures approximate ly 4.4 x 3.5 x 4.1 cm. It most likely represents a benign angiomyolipoma. However, the large solid co mponent is atypical. Bowel and peritoneum: No bowel distension. No pathologic free fluid. Lymph nodes: No central or retroperitoneal adenopathy. Vessels: No infrarenal aortic aneurysm. PELVIS Reproductive organs: Incidental note made of a fibroid uterus. No adnexal masses.. Bladder: No abnormal wall thickening, accounting for underdistension. Pelvic lymph nodes: No pelvic adenopathy by size criteria. Bones: Unilateral right L5 pars defect. Lower lumbar facet arthropathy. Remote left lateral fusion in volving L1-L3 with L2 corpectomy. No lytic or blastic bony lesions identified. Other: No significant ventral or inguinal hernia. IMPRESSION: 1. 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 However, there are instances of malignant transformation with deve lopment of a sarcoma reported in the literature. The presence of a large focal solid component raises this question. If this lesion is an angiomyolipoma (most likely), based on its size, endovascular em bolization of this lesion would be recommended, as lesions greater than 4 cm pose a statistical risk of significant spontaneous hemorrhage. Comment: Would recommend referral to a urologist to evaluate whether this particular lesion should be treated by partial nephrectomy versus embolization versus continued imaging follow-up. Reviewed by: Rodney Story MD on 02/02/2023 12:27 PM PST Approved by: Rodney Story MD on 02/02/2023 12:27 PM PST Station ID: [id number]
== END 2023-02-02 08:20 | disposition home or self-care (01) ==
LOC: DI 08:19
PROVIDERS: ATTEND Emergency Medicine
DX: N28.89 Other specified disorders of kidney and ureter (principal)
CPT/HCPCS: 74177; Q9963; Q9967

== ENCOUNTER 2023-07-27 08:03 | Outpatient (CLI) | payer MEDICARE, BC ==
[2023-07-27 08:33] LABS: BASOPHILS # (AUTO) 0.1 10^3/uL (0.0-0.1); BASOPHILS % (AUTO) 1.5 %; EOSINOPHILS # (AUTO) 0.2 10^3/uL (0.0-0.7); EOSINOPHILS % (AUTO) 3.6 %; HCT - HEMATOCRIT 43.7 % (37.0-47.0); LYMPHOCYTES # (AUTO) 1.5 10^3/uL (1.5-3.5); LYMPHOCYTES % (AUTO) 28.4 %; MEAN CORPUSCULAR HEMOGLOBIN 28.2 pg (27.0-31.0); MEAN CORPUSCULAR VOLUME 87.9 fL (81.0-99.0); MEAN PLATELET VOLUME 8.9 fL (7.9-10.8); MONOCYTES # (AUTO) 0.4 10^3/uL (0.0-1.0); MONOCYTES % (AUTO) 7.4 %; NEUTROPHILS # (AUTO) 3.1 10^3/uL (1.5-6.6); NEUTROPHILS % (AUTO) 58.9 %; PLT - PLATELET COUNT 337 10^3/uL (130-450); RED BLOOD COUNT 4.97 10^6/uL (4.20-5.40); RED CELL DISTRIBUTION WIDTH 14.6 % (12.0-15.0); WHITE BLOOD COUNT 5.3 x10^3/uL (4.8-10.8)
[2023-07-27 08:59] LABS: ALBUMIN 4.1 g/dL (3.2-5.5); ALBUMIN/GLOBULIN RATIO 1.6 (1.0-2.2); ALKALINE PHOSPHATASE 75 IU/L (42-121); ALT ALANINE AMINOTRANSFERASE 26 IU/L (10-60); AST ASPARTATE AMINOTRANSFERASE 22 IU/L (10-42); BILIRUBIN,TOTAL 0.6 mg/dL (0.2-1.0); BUN - BLOOD UREA NITROGEN 12 mg/dL (6-20); CALCIUM 9.4 mg/dL (8.5-10.3); CARBON DIOXIDE - CO2 27 mmol/L (21-32); CHLORIDE 106 mmol/L (101-111); CHOL/HDL RATIO 2.9 (<4.4); CHOLESTEROL 147 mg/dL; CREATININE 0.8 mg/dL (0.6-1.3); GFR - MDRD 72 (>89); GLUCOSE 100 mg/dL (74-104); HDL CHOLESTEROL 51 mg/dL; LDL CHOLESTEROL,CALCULATED 80 mg/dL; LDL/HDL RATIO 1.6 (<4.4); POTASSIUM 4.4 mmol/L (3.5-4.5); SODIUM 139 mmol/L (135-145); TOTAL PROTEIN 6.7 g/dL (6.4-8.9); TRIGLYCERIDES 79 mg/dL (48-352); VLDL CHOLESTEROL 16 mg/dL
[2023-07-27 09:13] LABS: THYROID STIMULATING HORMONE 1.83 uIU/mL (0.34-5.60)
[2023-07-27 12:17] LABS: ESTIMATED AVERAGE GLUCOSE 117 mg/dL (70-100); HEMOGLOBIN A1c% 5.7 % (4.27-6.07)
== END 2023-07-27 08:04 | disposition home or self-care (01) ==
LOC: LAB 08:03
PROVIDERS: ATTEND Family Medicine
DX: I10 Essential (primary) hypertension (principal); R73.03 Prediabetes; I77.74 Dissection of vertebral artery; Z79.01 Long term (current) use of anticoagulants; E78.5 Hyperlipidemia, unspecified
CPT/HCPCS: 36415; 80053; 80061; 83036; 83721; 84443; 85025

== ENCOUNTER 2023-07-30 13:21 | Outpatient (CLI) | payer MEDICARE, BC ==
--- NOTE | 2023-08-12 11:18 | DEXA Report ---
PROCEDURE: Dexa Spine and/or Hip INDICATIONS: POST MENOPAUSAL TECHNIQUE: Dual energy x-ray absorptiometry (DEXA) was performed in the regions detailed below. COMPARISON: 03/20/2020 FINDINGS: Lumbar Spine: Bone Mineral Density 1.474 g/cm/cm,T score 2.5. Previously 2.5 Left Femoral Neck: Bone Mineral Density 0.769 g/cm/cm, T score -1.9. Previously -1.9 Left Total Hip: Bone Mineral Density 0.814 g/cm/cm,T score -1.5. Previously -1.5 Left Forearm: Bone Mineral Density 0.565 g/cm/cm, T score -1.8. Previously -2.2 (T score greater or equal to -1.0: NORMAL) (T score from -1.1 to -2.4: OSTEOPENIA) (T score less than or equal to -2.5 to: OSTEOPOROSIS) IMPRESSION: Stable osteopenia Patients with diagnosis of osteoporosis or osteopenia should have regular bone mineral density assess ment. For those eligible for Medicare, routine testing is allowed once every 2 years. Testing frequ ency can be increased for patients who have rapidly progressing disease or for those who are receivin g medical therapy to restore bone mass. Reviewed by: Vitaly Chan MD on 08/12/2023 10:17 AM ABHINAV Approved by: Vitaly Chan MD on 08/12/2023 10:17 AM ABHINAV Station ID: [id number]
== END 2023-07-30 13:22 | disposition home or self-care (01) ==
LOC: DI 13:21
PROVIDERS: ATTEND Family Medicine
DX: Z78.0 Asymptomatic menopausal state (principal)